=== PATIENT | female | born 1995 | race Caucasian/White ===

== ENCOUNTER 2023-12-12 10:00 | Inpatient (IN) | payer OTHER ==
[2023-12-12 11:30] LABS: BASO % 0.2 % (0-2.0); EOS % 0.4 % (0-4.5); HEMATOCRIT 36.4 % (32.4-45.2); LYMPH % 17.5 % (8-40); MCH 28.8 pg (25.7-33.7); MEAN CELL VOLUME 87.3 fl (80-96); MEAN PLT VOLUME 9.4 fl (7.5-11.1); NEUT % 75.9 % (42.8-82.8); PLATELET COUNT 243 10^3/uL (134-434); RBC 4.17 M/mm3 (3.60-5.2); RDW 12.6 % (11.6-15.6); WHITE BLOOD COUNT 9.3 K/mm3 (4.0-10.0)
[2023-12-12 11:34] VITALS: BMI 23.8
[2023-12-12 11:37] LABS: INR 0.96 (0.83-1.09); PROTHROMBIN TIME (PATIENT) 11.1 SEC (9.7-13.0)
[2023-12-12 11:50] LABS: POTASSIUM 3.5 mmol/L (3.5-5.1)
[2023-12-12 11:52] LABS: CALCIUM 9.6 mg/dL (8.5-10.1)
[2023-12-12 11:53] LABS: BLOOD UREA NITROGEN 3.1 mg/dL (7-18)
[2023-12-12 11:57] LABS: CREATININE 0.7 mg/dL (0.55-1.3)
[2023-12-12 12:31] LABS: SYPHILIS W/ RPR CONF NON-REACTIVE (NONREACTIVE)
[2023-12-12] MEDS ORDERED: OXYTOCIN 30 UNITS in 0.9% NS 30 UNIT/500 ML INFUS.BAG IVPB ONE (12:54)
[2023-12-12] MEDS: ELECTROLYTE-148 SOLN 1,000 ML IV SCH (13:04)
[2023-12-12] MEDS: OXYTOCIN 30 UNITS in 0.9% NS 30 UNIT/500 ML INFUS.BAG IVPB SCH (13:05)
[2023-12-13] MEDS ORDERED: FENTANYL/BUPIVACAINE/NS/PF - PCEA - 50 ML DISP.SYRIN EP ONE ×4 (00:03→13:11)
[2023-12-13] MEDS: FENTANYL/BUPIVACAINE/NS/PF - PCEA - 50 ML DISP.SYRIN EP SCH (00:35)
[2023-12-13] MEDS ORDERED: NALOXONE HCL 0.4 MG/ML VIAL IVPUSH PRN (00:40)
[2023-12-13] MEDS: AMPICILLIN - 2 GM in SODIUM CHLORIDE 100 ML IVPB ONE (01:35)
[2023-12-13] MEDS ORDERED: AMPICILLIN SODIUM 2 GM VIAL ONE (01:35)
[2023-12-13] MEDS ORDERED: AMPICILLIN SODIUM 1 GM VIAL ONE ×2 (05:32→09:32)
[2023-12-13] MEDS: AMPICILLIN - 1 GM in SODIUM CHLORIDE 100 ML IVPB SCH (05:35)
[2023-12-13] MEDS ORDERED: OXYTOCIN 20 UNITS in 0.9% NS 20 UNIT/1,000 ML INFUS.BAG IV ONE (13:30)
[2023-12-13] MEDS ORDERED: BUPIVACAINE HCL/PF 0.25% (2.5MG/ML) 10 ML VIAL ONE (13:38)
[2023-12-13] MEDS ORDERED: LIDO 2%/EPI 1:200000 PRESRVFRE (20 ML SDVIAL) ONE (13:45)
[2023-12-13] MEDS ORDERED: FENTANYL CITRATE/PF 50 MCG/ML VIAL ONE ×2 (13:53→14:01)
[2023-12-13] MEDS ORDERED: PROPOFOL 20 ML ONE ×3 (13:55→14:43)
[2023-12-13] MEDS ORDERED: SUCCINYLCHOLINE CHLORIDE 200 MG/10 ML SYRINGE ONE (13:55)
[2023-12-13] MEDS ORDERED: ceFAZolin SODIUM 1 GM VIAL ONE (13:58)
[2023-12-13] MEDS ORDERED: OXYTOCIN 10 UNITS/ML VIAL ONE ×2 (14:00→14:05)
[2023-12-13] MEDS ORDERED: AZITHROMYCIN IVPB 500 MG/250 ML BAG IVPB ONE (14:07)
[2023-12-13] MEDS ORDERED: BUPIVACAINE LIPOSOME/PF (EXPAREL) 266 MG/20 ML VIAL ONE (14:31)
[2023-12-13 15:02] LABS: CORD BASE EXCESS -13.5 mmol/L (0-2); CORD HCO3 15.3 mmHg (20-29); CORD PCO2 45.9 mmHg (30-78); CORD pH 7.142 (7.14-7.44)
[2023-12-13] MEDS ORDERED: ONDANSETRON 4 MG/2 ML VIAL IVPUSH PRN ×2 (15:11)
[2023-12-13] MEDS ORDERED: DEXAMETHASONE SOD PHOSPHATE 4 MG/1 ML VIAL IVPUSH PRN (15:11)
[2023-12-13] MEDS ORDERED: HYDROmorphone *PCA* 10MG/50ML DISP.SYRIN ONE (16:18)
[2023-12-13] MEDS: HYDROmorphone *PCA* 10MG/50ML DISP.SYRIN PCA SCH (16:45)
[2023-12-13] MEDS ORDERED: METHYLERGONOVINE MALEATE 0.2 MG/1 ML AMP IM PRN (17:36)
[2023-12-13] MEDS ORDERED: IBUPROFEN 800 MG/8 ML IJ IVPB PRN (17:43)
[2023-12-13] MEDS: ACETAMINOPHEN 1000 MG/100 ML BAG IVPB SCH (18:18)
[2023-12-13] MEDS: FAMOTIDINE 20 MG/50 ML IVPB 20 MG/50 ML MG IVPB SCH (20:15)
[2023-12-13] MEDS: OXYTOCIN 20 UNITS in 0.9% NS 20 UNIT/1,000 ML INFUS.BAG IV SCH (22:07)
[2023-12-13] MEDS: SIMETHICONE 80 MG TAB.CHEW (FP) PO PRN (22:11)
[2023-12-14] MEDS ORDERED: IBUPROFEN 600 MG TABLET (FP) PO SCH (08:00)
[2023-12-14] MEDS: ACETAMINOPHEN 325 MG TABLET (FP) PO SCH (09:05)
[2023-12-14 09:36] LABS: BASO % 0.1 % (0-2.0); EOS % 0.1 % (0-4.5); HEMATOCRIT 32.1 % (32.4-45.2); HEMOGLOBIN 10.9 GM/dL (10.7-15.3); LYMPH % 9.7 % (8-40); MCH 29.5 pg (25.7-33.7); MCHC 33.8 g/dl (32.0-36.0); MEAN CELL VOLUME 87.2 fl (80-96); MONO % 5.4 % (3.8-10.2); NEUT % 84.7 % (42.8-82.8); PLATELET COUNT 224 10^3/uL (134-434); RBC 3.68 M/mm3 (3.60-5.2); RDW 12.6 % (11.6-15.6); WHITE BLOOD COUNT 14.3 K/mm3 (4.0-10.0)
[2023-12-14] MEDS: FAMOTIDINE 20 MG TABLET PO SCH (15:57)
[2023-12-14] MEDS: oxyCODONE HCL 5 MG TABLET PO PRN (21:52)
[2023-12-16] MEDS: BISACODYL 10 MG SUPP.RECT RC PRN (06:15)
[2023-12-16 08:39] LABS: BASO % 0.2 % (0-2.0); EOS % 1.7 % (0-4.5); HEMATOCRIT 32.5 % (32.4-45.2); HEMOGLOBIN 10.9 GM/dL (10.7-15.3); LYMPH % 17.5 % (8-40); MCH 29.7 pg (25.7-33.7); MCHC 33.7 g/dl (32.0-36.0); MEAN CELL VOLUME 88.3 fl (80-96); MEAN PLT VOLUME 8.7 fl (7.5-11.1); MONO % 5.8 % (3.8-10.2); NEUT % 74.8 % (42.8-82.8); PLATELET COUNT 235 10^3/uL (134-434); RBC 3.68 M/mm3 (3.60-5.2); RDW 12.5 % (11.6-15.6); WHITE BLOOD COUNT 8.8 K/mm3 (4.0-10.0)
[2023-12-16] MEDS: NITROFURANTOIN MONOHYD/M-CRYST 100 MG CAPSULE PO SCH (15:22)
[2023-12-16 21:41] VITALS: RESP 18
[2023-12-17 10:39] VITALS: BP 108/71; PULSE 76; TEMP 98.4
== END 2023-12-17 14:15 | disposition home or self-care (01) | DRG 540 ==
LOC: JDEL 10:00 → JLDR 10:50 → J3W 12-13 17:55
PROVIDERS: ADMIT Obstetrics & Gynecology; ATTEND Obstetrics & Gynecology
PROC: 10D00Z1 Extraction of Products of Conception, Low, Open Approach (ICD-10-PCS; principal; 2023-12-13)
DX: O36.8330 Maternal care for abnormalities of the fetal heart rate or rhythm, third trimester, not applicable or unspecified (principal); O42.92 Full-term premature rupture of membranes, unspecified as to length of time between rupture and onset of labor; Z3A.37 37 weeks gestation of pregnancy; Z37.0 Single live birth
CPT/HCPCS: 36415; 36600; 80048; 82803; 85025; 85610; 85730; 86780; 86803; 86850; 86900; 86901; 88307-TC; 94010; J0131